=== PATIENT | male | born 1950 | race Caucasian/White ===

== ENCOUNTER 2017-08-20 12:16 | Emergency (ER) | payer MEDICARE ==
[2017-08-20 13:02] VITALS: PULSE 80; RESP 18
[2017-08-20 13:09] VITALS: BMI 27.4
--- NOTE | 2017-08-20 15:05 | CT ---
PROCEDURE: CT HEAD WITHOUT CONTRAST. HISTORY: fall COMPARISON: None available. TECHNIQUE: Axial computed tomography images were obtained through the head/brain without intravenous contrast. Radiation dose: Total exam DLP = 819.93 mGy-cm. This CT exam was performed using one or more of the following dose reduction techniques: Automated exposure control, adjustment of the mA and/or kV according to patient size, and/or use of iterative reconstruction technique. FINDINGS: HEMORRHAGE: No intracranial hemorrhage. BRAIN: No mass effect or edema. Minimal diffuse age-appropriate cerebral atrophy. No appreciable white matter ischemic change. VENTRICLES: Unremarkable. No hydrocephalus. CALVARIUM: Unremarkable. PARANASAL SINUSES: Unremarkable as visualized. No significant inflammatory changes. MASTOID AIR CELLS: Unremarkable as visualized. No inflammatory changes. OTHER FINDINGS: None. IMPRESSION: Normal CT of the Head. No intracranial hemorrhage.
--- NOTE | 2017-08-20 15:17 | CT ---
PROCEDURE: CT MAXILLOFACIAL BONES WITHOUT CONTRAST HISTORY: fall COMPARISON: None TECHNIQUE: Contiguous axial CT images of the maxillofacial bones were obtained. Coronal and sagittal reformats were generated. Radiation dose: Total exam DLP = 788.89 mGy-cm. This CT exam was performed using one or more of the following dose reduction techniques: Automated exposure control, adjustment of the mA and/or kV according to patient size, and/or use of iterative reconstruction technique. FINDINGS: NASAL BONES: Unremarkable. ORBITS: Unremarkable. PARANASAL SINUSES/ MASTOIDS: Clear. MAXILLA: No fracture. Minimal periodontal disease with apical lucency about left molars. Minimal soft tissue swelling overlying the left maxilla and mandible. MANDIBLE/ TEMPOROMANDIBULAR JOINTS: Unremarkable. SKULL BASE: Unremarkable. TEMPORAL BONES: Middle ears and mastoid grossly unremarkable. OTHER FINDINGS: Minimal chronic bilateral maxillary sinusitis. IMPRESSION: No acute fracture. Minimal chronic bilateral maxillary sinusitis. Mild periodontal disease involving several left maxillary molars.
--- NOTE | 2017-08-20 15:40 | C.PDOC ---
History Of Present Illness 67yo male, sent to ED by PMD for evaluation after the patient tripped on the street and landed on his face. He denies any loss of consciousness due to the fall. Patient reports some bleeding from his facial abrasions but states it has been controlled; patient on a daily regimen of aspirin. He denies any headaches , vision changes, neck pain, weakness, numbness. No other complaints. Time Seen by Provider: 08/20/17 13:29 Chief Complaint (Nursing): Abnormal Skin Integrity History Per: Patient History/Exam Limitations: no limitations Onset/Duration Of Symptoms: Days Current Symptoms Are (Timing): Still Present Past Medical History Reviewed: Historical Data, Nursing Documentation, Vital Signs Vital Signs: Last Vital Signs Temp 97.7 F 08/20/17 15:44 Pulse 80 08/20/17 15:44 Resp 18 08/20/17 15:44 BP 134/75 08/20/17 15:44 Pulse Ox 98 08/20/17 16:49 - Medical History PMH: HTN, Hypercholesterolemia Surgical History: Pacemaker Family History: States: Unknown Family Hx - Social History Hx Alcohol Use: No Hx Substance Use: No - Immunization History Hx Tetanus Toxoid Vaccination: Yes Hx Influenza Vaccination: No Hx Pneumococcal Vaccination: Yes Review Of Systems Except As Marked, All Systems Reviewed And Found Negative. Eyes: Negative for: Vision Change Skin: Positive for: Other (facial abrasion) Neurological: Negative for: Weakness, Numbness, Other (head inj) Physical Exam - Physical Exam Appears: Non-toxic, No Acute Distress Skin: Normal Color Head: Normacephalic, Abrasion (significant abrasions and swelling over left orbit and cheek) Eye(s): bilateral: PERRL, EOMI Neck: Normal ROM, No Midline Cervical Tenderness, No Paracervical Tenderness, No Step Off Deformity, Supple Chest: Symmetrical Cardiovascular: Rhythm Regular Respiratory: Normal Breath Sounds Back: Normal Inspection, No Vertebral Tenderness, No Paraspinal Tenderness Extremity: Normal ROM Neurological/Psych: Oriented x3, Normal Speech, Normal Cognition, Normal Motor, Normal Sensation ED Course And Treatment O2 Sat by Pulse Oximetry: 98 (RA) Pulse Ox Interpretation: Normal Medical Decision Making Medical Decision Making: Impression: Facial injury s/p fall Plan: -- CT Head w/o contrast -- CT Maxillofacial CT Head FINDINGS: HEMORRHAGE: No intracranial hemorrhage. BRAIN: No mass effect or edema. Minimal diffuse age-appropriate cerebral atrophy. No appreciable white matter ischemic change. VENTRICLES: Unremarkable. No hydrocephalus. CALVARIUM: Unremarkable. PARANASAL SINUSES: Unremarkable as visualized. No significant inflammatory changes. MASTOID AIR CELLS: Unremarkable as visualized. No inflammatory changes. OTHER FINDINGS: None. IMPRESSION: Normal CT of the Head. No intracranial hemorrhage. CT Maxillofacial FINDINGS: NASAL BONES: Unremarkable. ORBITS: Unremarkable. PARANASAL SINUSES/ MASTOIDS: Clear. MAXILLA: No fracture. Minimal periodontal disease with apical lucency about left molars. Minimal soft tissue swelling overlying the left maxilla and mandible. MANDIBLE/ TEMPOROMANDIBULAR JOINTS: Unremarkable. SKULL BASE: Unremarkable. TEMPORAL BONES: Middle ears and mastoid grossly unremarkable. OTHER FINDINGS: Minimal chronic bilateral maxillary sinusitis. IMPRESSION: No acute fracture. Minimal chronic bilateral maxillary sinusitis. Mild periodontal disease involving several left maxillary molars. Patient with normal CT studies, stable for discharge home. Informed to follow up with PCP in 2-3 days. Disposition Counseled Patient/Family Regarding: Studies Performed, Diagnosis, Need For Followup - Disposition Disposition: HOME/ ROUTINE Disposition Time: 15:40 Condition: STABLE Additional Instructions: Jagdish lutz doctor. Instructions: Minor Head Injury (DC) Forms: Gen Discharge Inst [place], [facility] ([place]er) - POA Present On Arrival: None - Clinical Impression Clinical Impression: Head injury - Scribe Statement The provider has reviewed the documentation as recorded by the Scribe (Isabel Arteaga) Provider Attestation: Provider Attestation: All medical record entries made by the Scribe were at my direction and personally dictated by me. I have reviewed the chart and agree that the record accurately reflects my personal performance of the history, physical exam, medical decision making, and the department course for this patient. I have also personally directed, reviewed, and agree with the discharge instructions and disposition.
[2017-08-20 15:45] VITALS: BP 134/75; TEMP 97.7
[2017-08-20 15:56] VITALS: O2SAT 98
== END 2017-08-20 15:52 | disposition home or self-care (01) ==
LOC: C.ER 12:16
DX: S09.90XA Unspecified injury of head, initial encounter (principal); W01.0XXA Fall on same level from slipping, tripping and stumbling without subsequent striking against object, initial encounter; Y92.410 Unspecified street and highway as the place of occurrence of the external cause

== ENCOUNTER 2017-11-20 08:08 | Emergency (ER) | payer MEDICARE ==
[2017-11-20 08:08] VITALS: BMI 27.4
[2017-11-20 08:14] VITALS: PULSE 78; O2SAT 100
--- NOTE | 2017-11-20 09:18 | C.PDOC ---
History Of Present Illness 67 y/o male with history of DM presents to ED with c/o of left foot swelling and redness for 2 days. Patient reports he is unable to put foot on floor secondary to swelling. The patient denies injury, weakness, numbness, rash, insect/animal bites, rash, fever or any other complaints at this time. Time Seen by Provider: 11/20/17 08:33 Chief Complaint (Nursing): Lower Extremity Problem/Injury History Per: Patient History/Exam Limitations: no limitations Onset/Duration Of Symptoms: Days Current Symptoms Are (Timing): Still Present Past Medical History Reviewed: Historical Data, Nursing Documentation, Vital Signs Vital Signs: Last Vital Signs Temp 98 F 11/20/17 10:51 Pulse 78 11/20/17 10:51 Resp 18 11/20/17 10:51 BP 126/88 11/20/17 10:51 Pulse Ox 100 11/20/17 10:51 - Medical History PMH: Asthma, HTN, Hypercholesterolemia Surgical History: Pacemaker Family History: States: No Known Family Hx - Social History Hx Alcohol Use: No Hx Substance Use: No - Immunization History Hx Tetanus Toxoid Vaccination: Yes Hx Influenza Vaccination: No Hx Pneumococcal Vaccination: Yes Review Of Systems Constitutional: Negative for: Fever, Chills Cardiovascular: Negative for: Chest Pain Gastrointestinal: Negative for: Nausea, Vomiting Genitourinary: Negative for: Dysuria, Hematuria Musculoskeletal: Positive for: Foot Pain (swelling) Skin: Negative for: Rash Neurological: Negative for: Weakness, Numbness Physical Exam - Physical Exam Appears: Non-toxic, No Acute Distress Skin: Warm, Dry, No Rash Head: Atraumatic, Normacephalic Eye(s): bilateral: Normal Inspection Oral Mucosa: Moist Neck: Normal ROM, Supple Cardiovascular: Rhythm Regular Respiratory: Normal Breath Sounds, No Rales, No Rhonchi, No Wheezing Extremity: Tenderness (over distal 4th-5th metatarsals), No Deformity, Swelling (minimal 1x1cm area over distal 4th-5th metatarsals), Other (Erythema to left foot) Pulses: Left Dorsalis Pedis: Normal Neurological/Psych: Oriented x3, Normal Motor, Normal Sensation Gait: Steady ED Course And Treatment O2 Sat by Pulse Oximetry: 100 (RA) Pulse Ox Interpretation: Normal Medical Decision Making Medical Decision Making: Diff/Dx: Gout, cellulitis, foreign body, fracture The erythema is localized and not spreading will discharge. Disposition - Disposition Referrals: Kashif Cramer MD [Staff Provider] - Disposition: HOME/ ROUTINE Disposition Time: 10:19 Condition: GOOD Additional Instructions: Follow up with the [facility] within 1-2 days. Return if worsened. Prescriptions: Cephalexin [Keflex] 500 mg PO TID #21 capsule Ibuprofen [Motrin] 600 mg PO TID #21 tab predniSONE [Prednisone] 10 mg PO BID #10 tab Instructions: Gout (DC) Forms: [facility] ([place]isian) - Clinical Impression Clinical Impression: Gout - PA / [facility]REL WASHER / Resident Statement MD/DO has reviewed & agrees with the documentation as recorded. - Scribe Statement The provider has reviewed the documentation as recorded by the Regine La All medical record entries made by the Regine were at my direction and personally dictated by me. I have reviewed the chart and agree that the record accurately reflects my personal performance of the history, physical exam, medical decision making, and the department course for this patient. I have also personally directed, reviewed, and agree with the discharge instructions and disposition.
[2017-11-20 11:12] VITALS: BP 126/88; RESP 18; TEMP 98
--- NOTE | 2017-11-20 11:17 | RAD ---
PROCEDURE: Left Foot Radiographs. HISTORY: erythema and swelling on the dorsal aspect, COMPARISON: None. FINDINGS: BONES: No acute fracture or destructive bony lesion identified. JOINTS: Articular cortical sclerosis appreciate throughout the joints of the left foot diffusely, compatible with degenerative joint disease. No subluxation or dislocation. SOFT TISSUES: Vascular calcifications are identified in the dorsal midfoot soft tissues and anterior ankle soft tissues. OTHER FINDINGS: None. IMPRESSION: No definite acute fracture or dislocation identified throughout the left foot. Diffuse degenerative joint disease is noted and vascular calcifications are noted in soft tissues.
== END 2017-11-20 10:51 | disposition home or self-care (01) ==
LOC: C.ER 08:08
DX: M10.9 Gout, unspecified (principal)
CPT/HCPCS: 73630; 96372; 99284; J1885